=== PATIENT | female | born 1955 | race Caucasian/White ===

== ENCOUNTER 2022-11-29 14:38 | Outpatient (CLI) | payer MEDICARE, BC | END 2022-11-29 14:39 | disposition home or self-care (01) | LOC: CSHMAMMO 14:38 | PROVIDERS: ATTEND Internal Medicine | DX: Z12.31 Encounter for screening mammogram for malignant neoplasm of breast (principal); M81.0 Age-related osteoporosis without current pathological fracture; M85.89 Other specified disorders of bone density and structure, multiple sites; Z80.3 Family history of malignant neoplasm of breast | CPT/HCPCS: 77063; 77067; 77080 ==

== ENCOUNTER 2024-02-01 11:26 | Outpatient (CLI) | payer BC, MEDICARE | END 2024-02-01 11:27 | disposition home or self-care (01) | LOC: CSHMAMMO 11:26 | PROVIDERS: ATTEND Internal Medicine | DX: Z12.31 Encounter for screening mammogram for malignant neoplasm of breast (principal); Z80.3 Family history of malignant neoplasm of breast | CPT/HCPCS: 77063; 77067 ==

== ENCOUNTER 2025-03-27 13:12 | Outpatient (CLI) | payer MEDICARE | END 2025-03-27 13:13 | disposition home or self-care (01) | LOC: CSHMAMMO 13:12 | PROVIDERS: ATTEND Internal Medicine | DX: Z12.31 Encounter for screening mammogram for malignant neoplasm of breast (principal); Z80.3 Family history of malignant neoplasm of breast | CPT/HCPCS: 77063; 77067 ==